=== PATIENT | female | born 1980 | race Caucasian/White ===

== ENCOUNTER 2016-04-17 14:37 | Emergency (ER) | payer OTHER ==
[~2016-04-17] VITALS: Ht 165.1 cm; Wt 54.5 kg
[~2016-04-17 14:37] MED LIST: COL100L PO; MOT800 PO; PNV1TABL57 PO; [UNRECOGNIZED DRUG - CODE] PO
[2016-04-17 14:50] VITALS: BP 121/86; PULSE 71; RESP 16; O2SAT 99
--- NOTE | 2016-04-17 15:03 | ED.REPORT ---
HPI-General Illness Date of Service Apr 17, 2016 ED Provider: The patient is a 35 year old female who presents to the emergency department complaining of possible exposure. The patient administered lidocaine with a 30 gauge needle for a local injection. When she went to slide the safety device up she hit it with her thumb. There was a puncture wound with minimal bleeding. She believes the patient she administered the lidocaine to was very low risk. She denies any other injuries or concerns. Her immunizations are up to date. Nursing Notes Stated Complaint: STUCK SELF WITH NEEDLE-EMPLOYEE Chief Complaint: Post Exposure Body Fluids Nursing Notes Reviewed: Yes Allergies: Coded Allergies: No Known Allergies (Verified Allergy, Unknown, 04/17/16) Scheduled PRN APAP/Hydrocod-Expunged Drug, Do Not Renew! (APAP/Hydrocod-Expunged Drug, Do Not Renew!) 1 Ea Tablet 0 EA PO Q3 PRN PRN Docusate Sod-Expunged Drug, Do Not Renew! (Docusate Sod-Expunged Drug, Do Not Renew!) 10 Mg/1 Ml Liqd 100 MG PO BID PRN PRN IBUPROFEN-Expunged Drug, Do Not Renew! (Motrin-Expunged Drug, Do Not Renew!) 800 Mg Tablet 800 MG PO Q6 PRN PRN Miscellaneous Medications PNV CMB#95/FERROUS FUMARATE/FA-Expunged Drug, (-Expunged Drug, Do Not Renew!) 1 Each Tablet 1 EACH PO General Time Seen by MD: 15:02 Chief Complaint Other (exposure) Hx Obtained From: Patient Arrived By: Walk-in Sudden in Onset?: Yes Onset Occurred: 1 - 4 hours ago Symptom Duration: Since onset Context: Occurred at: Workplace Quality: Painful Severity: Current: No pain currently Severity: Maximum: Mild Recent Healthcare: No recent doctor visit, No recent hospitalization Similar Sx Previous: No Past Medical History Past Medical History None Family History Noncontributory Smoking History Unknown if Ever Smoker Social History Other Social History: Good social support, Local resident Occupation RN at [employer] Ambulatory Status Independent Review of Systems +needle stick Full Review of Systems Musculoskeletal: Reports: Extremity pain Complete sys rev & neg: except as marked. Physical Exam Vital Signs Vital Signs Date Time Temp Pulse Resp B/P Pulse Ox O2 Delivery O2 Flow Rate FiO2 04/17/16 14:50 36.8 71 16 121/86 99 Room Air Initial VS: Reviewed Head / Eyes: Atraumatic, Normocephalic, PERRL ENT: Mucous membranes moist, Conjunctiva normal, No scleral icterus Neck: Supple, Non-tender, Full range of motion Respiratory: No respiratory distress Lymphatic: No lymphadenopathy Extremities: Vascular intact, Neuro intact, No swelling, No tenderness Skin: Warm, Dry, No cyanosis Neurologic: Alert, Oriented, Nonfocal Psychiatric: Mood/affect normal, Behavior normal, Normal thought content General/Constitutional: Awake, Alert, Well appearing Wrist / Hand: No deformity, Neurologic intact, Vascular intact No puncture wound seen. Re-Eval/Medical Decision Med Decision/Clinical Course Patient is a healthy 35-year-old female who presents with needle stick injury. She was injecting lidocaine and stuck herself superficially about the pad of her thumb with a 30-gauge hollow bore needle that did not appear bloody. She describes the source patient as "low risk" without any known history of HIV, hepatitis B or hepatitis C. Patient denies any history of HIV hepatitis B or C. She is here to have paperwork filled out and obtain routine post exposure testing. Postexposure panel was ordered and obtained. Occupational health is already aware of the incident and will be testing source patient. She will follow up with occupational health. Follow-up and return precautions were provided in detail and she verbalized understanding and agreement with the plan. She was discharged in good condition. Time of Eval: 15:27 Re-Evaluation/Progress Note: Discussed plan for exposure panel draw and discharge with followup. All questions were addressed. Counseled Regarding: Diagnosis, Need for follow-up, When/why to return to ED Discharge & Departure Primary Impression: Needle stick injury Disposition: Home Discharge Condition All VS Reviewed: Yes Condition: Stable Patient Instructions: Needle Stick Injuries (ED) Additional Instructions: Thank you for seeking care at the emergency room. Our primary goal today in the ED was to evaluate you for any life-threatening conditions. Your evaluation was reassuring. We have ordered an exposure panel that should result in the next 1-2 weeks. You should follow-up with occupational health to further discuss this. You should return to the ED immediately if you develop any other concerning signs or symptoms. Thank you for letting us partake in your care today. Referrals: Niya Gil MD (PCP) Scribe Attestation Portions of this note were transcribed by Melissa Lima. I, Dr. Jung personally performed the history, physical exam and medical decision-making; I reviewed and confirmed the accuracy of the information in the transcribed note. Signed by: Kiara Dietrich, 04/17/2016 and 1545. copies to: Niya Gil MD, Beck O MD Apr 17, 2016 15:03 Melissa Lima Apr 17, 2016 15:05
== END 2016-04-17 15:30 | disposition home or self-care (01) ==
LOC: SED 14:37
DX: S61.039A Puncture wound without foreign body of unspecified thumb without damage to nail, initial encounter (principal); W46.1XXA Contact with contaminated hypodermic needle, initial encounter; Y92.239 Unspecified place in hospital as the place of occurrence of the external cause; Y93.89 Activity, other specified; Y99.0 Civilian activity done for income or pay; Z77.21 Contact with and (suspected) exposure to potentially hazardous body fluids
CPT/HCPCS: 36415; 86706; 99283; G0433